=== PATIENT | female | born 1990 | race Caucasian/White ===

== ENCOUNTER 2017-01-24 15:13 | Emergency (ER) | payer SELFPAY ==
[2017-01-24 15:35] VITALS: BP 124/79
[2017-01-24] MEDS ORDERED: Mupirocin 2% OINT* TUBE TOPICAL ONE (15:42)
--- NOTE | 2017-01-24 15:48 | UC ---
HPI BURN - HPI Summary HPI Summary: Linear negro to R biceps area from hot bagel randhawa while at work this morning. No blisters, drainage, or severe pain. - History of Current Complaint Chief Complaint: UCBurn Stated Complaint: BURN RIGHT ARM Time Seen by Provider: 01/24/17 15:38 Hx Obtained From: Patient Occurred: Hours Ago Length of Exposure: Seconds Onset Severity: Moderate Current Severity: Mild Location: RUE Character: Direct Thermal Contact Alleviating: Cool Soaks Associated Signs & Symptoms: Positive: Negative Occupational Injury: Yes - Allergy/Home Medications Allergies/Adverse Reactions: Allergies Allergy/AdvReac Type Severity Reaction Status Date / Time No Known Allergies Allergy Verified 01/24/17 15:35 Home Medications: Home Medications Naproxen TAB* [Naprosyn 250 mg TAB*] 250 mg PO Q8H PRN 01/24/17 [History Confirmed 01/24/17] PMH/Surg Hx/FS Hx/Imm Hx Previously Healthy: Yes - Surgical History Surgical History: Yes Surgery Procedure, Year, and Place: T&A. C section x2. Gallbladder. Cyst removal from ovary - Family History Known Family History: Negative: Blood Disorder - Social History Occupation: Employed Full-time - [employer] Alcohol Use: None Substance Use Type: None Smoking Status (MU): Heavy Every Day Tobacco Smoker Review of Systems Constitutional: Negative Skin: Other - negro to RUE Eyes: Negative ENT: Negative Respiratory: Negative Cardiovascular: Negative Gastrointestinal: Negative Genitourinary: Negative Motor: Negative Neurovascular: Negative Musculoskeletal: Negative Neurological: Negative Psychological: Negative All Other Systems Reviewed And Are Negative: Yes Physical Exam Triage Information Reviewed: Yes Appearance: Well-Appearing, No Pain Distress, Obese Vital Signs: Initial Vital Signs Temp 97.4 F 01/24/17 15:31 Pulse 97 01/24/17 15:31 Resp 14 01/24/17 15:31 BP 124/79 01/24/17 15:31 Pulse Ox 97 01/24/17 15:31 Vital Signs Reviewed: Yes Eye Exam: Normal Eyes: Positive: Conjunctiva Clear ENT Exam: Normal ENT: Positive: Normal ENT inspection, Hearing grossly normal, Pharynx normal, TMs normal Dental Exam: Normal Neck exam: Normal Respiratory Exam: Normal Respiratory: Positive: Chest non-tender, Lungs clear, Normal breath sounds, No respiratory distress, No accessory muscle use Cardiovascular Exam: Normal Cardiovascular: Positive: RRR, No Murmur Musculoskeletal Exam: Normal Neurological Exam: Normal Neurological: Positive: Alert Psychological Exam: Normal Skin Exam: Other - 2 linear negro to R biceps area, first is 1cm x 8cm, the other is 1cm x 3cm Burn Calculation - [place] Formula for Fluid Resuscitation Weight: 220 lb 24 -Hour Fluid Replacement: 0.0 Course/Dx Burn - Diagnoses Clinic Provider Diagnoses: superficial partial-thickness negro to RUE Discharge - Discharge Plan Condition: Stable Disposition: HOME Patient Education Materials: Superficial Burn (ED) Referrals: Carmenza Hickman MD [Primary Care Provider] - Additional Instructions: If you develop blisters or open areas on your burn, keep it dressed and clean ( wash in the shower daily) until it is fully sealed up. If the skin stays intact , you can stop using the ointment and the bandages once your pain is reduced.
== END 2017-01-24 16:00 | disposition home or self-care (01) ==
LOC: UCCORT 15:13
DX: T22.00XA Burn of unspecified degree of shoulder and upper limb, except wrist and hand, unspecified site, initial encounter (principal); X19.XXXA Contact with other heat and hot substances, initial encounter; Y93.89 Activity, other specified; Y92.89 Other specified places as the place of occurrence of the external cause; Y99.0 Civilian activity done for income or pay; E66.9 Obesity, unspecified; Z90.49 Acquired absence of other specified parts of digestive tract; F17.210 Nicotine dependence, cigarettes, uncomplicated
CPT/HCPCS: 99202; G0463

== ENCOUNTER 2017-08-10 09:37 | Emergency (ER) | payer SELFPAY ==
--- NOTE | 2017-08-10 09:55 | ED ---
Throat Pain/Nasal Congestion - HPI Summary HPI Summary: 26 yr old female with the complaint of sore throat, cough, sinus congestion. The patient had onset of symptoms three days ago. The patient is complaining of runny nose, sore throat, coughing. She denies fever, chills, chest pain, dizziness. No other complaints. - History of Current Complaint Time Seen by Provider: 08/10/17 09:40 - Allergies/Home Medications Allergies/Adverse Reactions: Allergies Allergy/AdvReac Type Severity Reaction Status Date / Time No Known Allergies Allergy Verified 08/10/17 09:51 Home Medications: Home Medications Naproxen Sodium [Naproxen Sodium 220 mg] 220 mg PO BID PRN 08/10/17 [History Confirmed 08/10/17] Phenylephrine-Chlorpheniramine [Jinny[place] Plus Cold &] 2 cap PO Q6H PRN 08/10 [History Confirmed 08/10/17] PMH/Surg Hx/FS Hx/Imm Hx - Surgical History Surgery Procedure, Year, and Place: T&A. C section x2. Gallbladder. Cyst removal from ovary - Family History Known Family History: Positive: None Negative: Blood Disorder - Social History Alcohol Use: None Substance Use Type: Reports: None Smoking Status (MU): Heavy Every Day Tobacco Smoker Review of Systems Constitutional: Negative Positive: Sore Throat, Nasal Discharge Positive: Cough All Other Systems Reviewed And Are Negative: Yes Physical Exam Triage Information Reviewed: Yes Vital Signs Reviewed: Yes Appearance: Positive: Well-Appearing, No Pain Distress Skin: Positive: Warm, Skin Color Reflects Adequate Perfusion Head/Face: Positive: Normal Head/Face Inspection Eyes: Positive: EOMI ENT: Positive: Pharyngeal erythema, Nasal congestion, TMs normal. Negative: Muffled voice, Hoarse voice Neck: Positive: Nontender Respiratory/Lung Sounds: Positive: Clear to Auscultation, Breath Sounds Present Cardiovascular: Positive: RRR. Negative: Murmur Abdomen Description: Positive: Nontender Musculoskeletal: Positive: Strength/ROM Intact Neurological: Positive: Sensory/Motor Intact, Alert, Oriented to Person Place, Time, CN Intact II-III Psychiatric: Positive: Normal - Shay Coma Scale Best Eye Response: 4 - Spontaneous Best Motor Response: 6 - Obeys Commands Best Verbal Response: 5 - Oriented EENT Course/Dx - Course Course Of Treatment: 26 yr old female with the complaint of URI symptoms. Rapid strep is negative. DC home. She does not want a note for work. - Diagnoses Provider Diagnoses: Upper respiratory infection Discharge - Discharge Plan Condition: Good Disposition: HOME Patient Education Materials: Upper Respiratory Infection (ED) Referrals: Non Staff,Doctor [Primary Care Provider] - [facility] [place] [facility] [Outside]
[2017-08-10 10:01] VITALS: BP 127/74
== END 2017-08-10 10:32 | disposition home or self-care (01) ==
LOC: UCCORT 09:37
DX: J06.9 Acute upper respiratory infection, unspecified (principal); F17.200 Nicotine dependence, unspecified, uncomplicated
CPT/HCPCS: 87651; 99211; G0463

== ENCOUNTER 2018-09-15 15:07 | Emergency (ER) | payer OTHER ==
[2018-09-15 16:07] VITALS: BP 116/82
--- NOTE | 2018-09-15 22:11 | ED ---
Lower Extremity - HPI Summary HPI Summary: Patient is a 27-year-old female who presents emergency department for knee pain 2 weeks. Patient does not note any specific injury but states she was with her children at a play center where she was crawling around on the floor. She noted pain after this activity. He symptoms are mild in severity. Pain is worse with walking and flex and extension. Symptoms are mild in severity. Pt. notes she works at [employer] and stands for long periods of time. - History of Current Complaint Chief Complaint: UCLowerExtremity Stated Complaint: LEFT KNEE COMPLAINT Time Seen by Provider: 09/15/18 16:59 Hx Obtained From: Patient Hx Last Menstrual Period: 08/27/18 Pain Intensity: 7 Pain Scale Used: 0-10 Numeric - Allergies/Home Medications Allergies/Adverse Reactions: Allergies Allergy/AdvReac Type Severity Reaction Status Date / Time No Known Allergies Allergy Verified 09/15/18 16:07 PMH/Surg Hx/FS Hx/Imm Hx Previously Healthy: Yes - Surgical History Surgery Procedure, Year, and Place: T&A. C section x2. Gallbladder. Cyst removal from ovary Infectious Disease History: No Infectious Disease History: Denies: Traveled Outside the [place] in Last 30 Days - Family History Known Family History: Positive: None Negative: Blood Disorder - Social History Alcohol Use: Rare Substance Use Type: Reports: None Smoking Status (MU): Light Every Day Tobacco Smoker Type: Cigarettes Amount Used/How Often: 6-7 cigs daily Review of Systems Positive: Other - Left knee pain Neurological: Negative All Other Systems Reviewed And Are Negative: Yes Physical Exam Triage Information Reviewed: Yes Vital Signs On Initial Exam: Initial Vitals Temp Pulse Resp BP Pulse Ox 98 F 88 16 116/82 100 09/15/18 16:03 09/15/18 16:03 09/15/18 16:03 09/15/18 16:03 09/15/18 16:03 Vital Signs Reviewed: Yes Appearance: Positive: Well-Appearing - Pt. sitting on exam table in NAD. Skin: Positive: Warm, Dry Head/Face: Positive: Normal Head/Face Inspection Eyes: Positive: Normal, EOMI Neck: Positive: Supple Neurological: Positive: Normal, CN Intact II-III Diagnostics - Vital Signs Vital Signs Temp Pulse Resp BP Pulse Ox 09/15/18 16:03 98 F 88 16 116/82 100 - Laboratory Lab Statement: Any lab studies that have been ordered have been reviewed, and results considered in the medical decision making process. Discharge - Discharge Plan Condition: Good Disposition: HOME Prescriptions: Naproxen [Naproxen 500 mg tab] 500 mg PO BID #20 tablet Patient Education Materials: Knee Sprain (ED) Referrals: [facility] [Outside] Kota De Leon MD [Medical Doctor] - Additional Instructions: Schedule a follow up appointment with the [facility] or the orthopedic clinic if pain persist Ice and elevate Naproxen for pain as directed Activity as tolerated - Billing Disposition and Condition Condition: GOOD Disposition: Home
--- NOTE | 2018-09-15 22:12 | UC ---
Knee Pain HPI - HPI Summary HPI Summary: Patient is a 27-year-old female who presents UC for knee pain 2 weeks. Patient does not note any specific injury but states she was with her children at a play center where she was crawling around on the floor. She noted pain after this activity. He symptoms are mild in severity. Pain is worse with walking and flex and extension. Symptoms are mild in severity. Pt. notes she works at [employer] (acquired by [employer]) and stands for long periods of time. - History of Current Complaint Chief Complaint: UCLowerExtremity Stated Complaint: LEFT KNEE COMPLAINT Time Seen by Provider: 09/15/18 16:59 Hx Obtained From: Patient Hx Last Menstrual Period: 08/27/18 Pain Intensity: 7 Pain Scale Used: 0-10 Numeric - Allergies/Home Medications Allergies/Adverse Reactions: Allergies Allergy/AdvReac Type Severity Reaction Status Date / Time No Known Allergies Allergy Verified 09/15/18 16:07 PMH/Surg Hx/FS Hx/Imm Hx Previously Healthy: Yes - Surgical History Surgical History: Yes Surgery Procedure, Year, and Place: T&A. C section x2. Gallbladder. Cyst removal from ovary - Family History Known Family History: Positive: None Negative: Blood Disorder - Social History Alcohol Use: Rare Substance Use Type: None Smoking Status (MU): Light Every Day Tobacco Smoker Type: Cigarettes Amount Used/How Often: 6-7 cigs daily - Immunization History Most Recent Influenza Vaccination: not this season Review of Systems All Other Systems Reviewed And Are Negative: Yes Physical Exam Triage Information Reviewed: Yes Appearance: Well-Appearing - Pt. sitting on exam table in NAD Vital Signs: Initial Vital Signs Temp 98 F 09/15/18 16:03 Pulse 88 09/15/18 16:03 Resp 16 09/15/18 16:03 BP 116/82 09/15/18 16:03 Pulse Ox 100 09/15/18 16:03 Vital Signs Reviewed: Yes Eyes: Positive: Conjunctiva Clear Neck: Positive: Supple Musculoskeletal: Positive: Other: - Pain over the medial aspect of left knee. No overlying erythema or increased warmth. No effusion. NO increased laxity. Pain with flexion and extension. Neurological Exam: Normal Psychological Exam: Normal Skin Exam: Normal Knee Pain Course/Dx - Course Course Of Treatment: Pt. with knee pain x 2 weeks. Xray negative for acute findings per radiology. Joao wrap placed for comfort. Naproxen rx. Advised ice and elevate. Activity as tolerated. To f.u with [facility] or ortho. if pain persist. Pt. understands and agrees with plan. - Differential Dx/Diagnosis Differential Diagnosis/HQI/PQRI: Contusion, Dislocation, Fracture (Closed), Sprain, Strain, Tendonitis Provider Diagnosis: Knee sprain Discharge - Sign-Out/Discharge Documenting (check all that apply): Patient Departure All imaging exams completed and their final reports reviewed: Yes - Discharge Plan Condition: Good Disposition: HOME Prescriptions: Naproxen [Naproxen 500 mg tab] 500 mg PO BID #20 tablet Patient Education Materials: Knee Sprain (ED) Referrals: [facility] [Outside] Kota De Leon MD [Medical Doctor] - Additional Instructions: Schedule a follow up appointment with the [facility] or the orthopedic clinic if pain persist Ice and elevate Naproxen for pain as directed Activity as tolerated - Billing Disposition and Condition Condition: GOOD Disposition: Home
== END 2018-09-15 18:14 | disposition home or self-care (01) ==
LOC: UCCORT 15:07
DX: S83.92XA Sprain of unspecified site of left knee, initial encounter (principal); X50.0XXA Overexertion from strenuous movement or load, initial encounter; Y93.89 Activity, other specified; Y92.89 Other specified places as the place of occurrence of the external cause; F17.210 Nicotine dependence, cigarettes, uncomplicated
CPT/HCPCS: 99212; G0463

== ENCOUNTER 2018-09-24 19:07 | Emergency (ER) | payer OTHER ==
[2018-09-24 19:24] VITALS: BP 126/71
--- NOTE | 2018-09-24 19:38 | UC ---
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 no wheezing. no sinus pain/pressure. mild nasal congestion. -here w/ friend abdulkadir -has some ringing. -oain is mild and it comes and goes. not there always. - History of Current Complaint Chief Complaint: UCEar Stated Complaint: LEFT EAR PLUGGED Time Seen by Provider: 09/24/18 19:28 Hx Last Menstrual Period: 08/27/18 Pain Intensity: 8 - Allergies/Home Medications Allergies/Adverse Reactions: Allergies Allergy/AdvReac Type Severity Reaction Status Date / Time No Known Allergies Allergy Verified 09/24/18 19:19 PMH/Surg Hx/FS Hx/Imm Hx Previously Healthy: Yes - Surgical History Surgical History: Yes Surgery Procedure, Year, and Place: T&A. C section x2. Gallbladder. Cyst removal from ovary - Family History Known Family History: Positive: None Negative: Blood Disorder - Social History Alcohol Use: Rare Substance Use Type: None Smoking Status (MU): Light Every Day Tobacco Smoker Type: Cigarettes Amount Used/How Often: 1/2 ppd daily Length of Time of Smoking/Using Tobacco: 10 yrs Have You Smoked in the Last Year: Yes - Immunization History Most Recent Influenza Vaccination: not this season Review of Systems All Other Systems Reviewed And Are Negative: Yes Constitutional: Positive: Negative Skin: Positive: Negative Eyes: Positive: Negative ENT: Positive: Ear Ache Respiratory: Positive: Negative Cardiovascular: Positive: Negative Gastrointestinal: Positive: Negative Genitourinary: Positive: Negative Motor: Positive: Negative Neurovascular: Positive: Negative Musculoskeletal: Positive: Negative Neurological: Positive: Negative Psychological: Positive: Negative Is Patient Immunocompromised?: No Physical Exam Triage Information Reviewed: Yes Appearance: Well-Appearing, No Pain Distress, Well-Nourished Vital Signs: Initial Vital Signs Temp 97.5 F 09/24/18 19:20 Pulse 87 09/24/18 19:20 Resp 18 09/24/18 19:20 BP 126/71 09/24/18 19:20 Pulse Ox 100 09/24/18 19:20 Vital Signs Reviewed: Yes Eye Exam: Normal ENT Exam: Normal ENT: Positive: Hearing grossly normal, Pharynx normal, Nasal congestion, TMs normal - mild serous fluid b/l w/ mild fullness. no retraction/erythema., Uvula midline. Negative: Nasal drainage, TM bulging, TM dull, TM red, Tonsillar swelling, Tonsillar exudate, Hoarse voice, Sinus tenderness Dental Exam: Normal Neck exam: Normal Neck: Positive: Supple, Nontender, No Lymphadenopathy Respiratory: Positive: Lungs clear, Normal breath sounds, No respiratory distress, No accessory muscle use Cardiovascular Exam: Normal Cardiovascular: Positive: RRR Abdominal Exam: Normal Abdomen Description: Positive: Soft Musculoskeletal Exam: Normal Neurological Exam: Normal Psychological Exam: Normal Skin Exam: Normal Ear Complaint Course/Dx - Course Course Of Treatment: mild b/l serous otitis w/ ETD. discussed nature of sx and treatment - Differential Dx/Diagnosis Differential Diagnosis/HQI/PQRI: Otitis Externa, Otitis Media, URI Provider Diagnosis: Acute serous otitis media of both ears Discharge - Sign-Out/Discharge Documenting (check all that apply): Patient Departure All imaging exams completed and their final reports reviewed: No Studies - Discharge Plan Condition: Stable Disposition: HOME Patient Education Materials: Serous Otitis Media (ED) Referrals: No Primary Care Phys,NOPCP [Primary Care Provider] - Additional Instructions: You can buy OTC flonase steroid nasal spray to use daily to help relieve your symptoms. Using a humidifier in your room will be helpful as well. You can follow up with your PCP or here if your symptoms increase or persist. - Billing Disposition and Condition Condition: STABLE Disposition: Home
== END 2018-09-24 19:51 | disposition home or self-care (01) ==
LOC: UCCORT 19:07
DX: H65.03 Acute serous otitis media, bilateral (principal); F17.210 Nicotine dependence, cigarettes, uncomplicated
CPT/HCPCS: 99211; G0463

== ENCOUNTER 2018-10-03 16:24 | Emergency (ER) | payer OTHER ==
[2018-10-03 16:36] VITALS: BP 130/76
--- NOTE | 2018-10-03 16:43 | UC ---
General HPI - HPI Summary HPI Summary: pt had a molar pulled on thursday. , she noted something draining from the socket plus some swelling. she has a f/u appt this week(10/05/18). + foul taste. - History of Current Complaint Chief Complaint: UCDentalProblem Stated Complaint: DENTAL Time Seen by Provider: 10/03/18 16:27 Hx Obtained From: Patient Hx Last Menstrual Period: 09/26/18 Pain Intensity: 5 Associated Signs & Symptoms: Negative: Fever, Headache - Allergy/Home Medications Allergies/Adverse Reactions: Allergies Allergy/AdvReac Type Severity Reaction Status Date / Time No Known Allergies Allergy Verified 09/24/18 19:19 Home Medications: Home Medications Ibuprofen TAB* [Motrin TAB* 600 MG] 600 mg PO Q6H PRN 10/03/18 [History Confirmed 10/03/18] PMH/Surg Hx/FS Hx/Imm Hx Previously Healthy: Yes - Surgical History Surgical History: Yes Surgery Procedure, Year, and Place: T&A. C section x2. Gallbladder. Cyst removal from ovary - Family History Known Family History: Positive: None Negative: Blood Disorder - Social History Alcohol Use: Rare Substance Use Type: None Smoking Status (MU): Heavy Every Day Tobacco Smoker Type: Cigarettes Amount Used/How Often: 1/2 ppd daily Length of Time of Smoking/Using Tobacco: since age 16 Have You Smoked in the Last Year: Yes - Immunization History Most Recent Influenza Vaccination: not this season Review of Systems All Other Systems Reviewed And Are Negative: Yes Constitutional: Positive: Negative Skin: Positive: Negative Eyes: Positive: Negative ENT: Positive: Dental Pain Respiratory: Positive: Negative Cardiovascular: Positive: Negative Gastrointestinal: Positive: Negative Genitourinary: Positive: Negative Motor: Positive: Negative Neurovascular: Positive: Negative Musculoskeletal: Positive: Negative Neurological: Positive: Negative Psychological: Positive: Negative Physical Exam Triage Information Reviewed: Yes Appearance: Well-Appearing Vital Signs: Initial Vital Signs Temp 97.4 F 10/03/18 16:31 Pulse 90 10/03/18 16:31 Resp 17 10/03/18 16:31 BP 130/76 10/03/18 16:31 Pulse Ox 99 10/03/18 16:31 Vital Signs Reviewed: Yes Eyes: Positive: Conjunctiva Clear ENT: Positive: Pharynx normal, TMs normal. Negative: Nasal congestion, Nasal drainage Dental: Positive: Other: - R lower posterior jaw has an extraction site for the posterior molar with a yellowing over the surface. Gum not fluctuant. Single enlarged lymph nodes adjacent to extraction site. Neck: Positive: Supple, Nontender, No Lymphadenopathy Respiratory: Positive: Lungs clear, Normal breath sounds Cardiovascular: Positive: RRR, No Murmur Abdomen Description: Positive: Nontender, No Organomegaly, Soft Bowel Sounds: Positive: Present Musculoskeletal: Positive: ROM Intact Neurological: Positive: Alert Psychological: Positive: Age Appropriate Behavior Skin Exam: Normal Skin: Negative: Rashes Course/Dx - Diagnoses Provider Diagnosis: Dental infection Discharge - Sign-Out/Discharge Documenting (check all that apply): Patient Departure All imaging exams completed and their final reports reviewed: No Studies - Discharge Plan Condition: Stable Disposition: HOME Prescriptions: Amoxicillin PO (*) [Amoxicillin 875 MG (*)] 875 mg PO BID 10 Days #20 tab Patient Education Materials: Dental Abscess (ED) Referrals: No Primary Care Phys,NOPCP [Primary Care Provider] - Additional Instructions: FOLLOW UP WITH [facility] SCHEDULED FOR THIS Thursday Disposition and Condition Condition: STABLE Disposition: Home
== END 2018-10-03 16:49 | disposition home or self-care (01) ==
LOC: UCCORT 16:24
DX: K04.7 Periapical abscess without sinus (principal); F17.210 Nicotine dependence, cigarettes, uncomplicated
CPT/HCPCS: 99212; G0463